=== PATIENT | female | born 1995 | race Caucasian/White ===

== ENCOUNTER 2016-09-08 10:33 | Inpatient (IN) | payer MEDICAID ==
[2016-09-08 11:46] LABS: APPEARANCE,URINE SLIGHTLY-CLOUDY; BILIRUBIN,URINE NEGATIVE (NEGATIVE); GLUCOSE, URINE NEGATIVE (NEGATIVE); KETONES,URINE NEGATIVE (NEGATIVE); LEUKOCYTE ESTERASE,URINE TRACE (NEGATIVE); NITRITE,URINE NEGATIVE (NEGATIVE); PROTEIN,URINE NEGATIVE (NEGATIVE); URINE SPECIFIC GRAVITY 1.019; UROBILINOGEN,URINE NEGATIVE mg/dL (<2.0)
--- NOTE | 2016-09-08 12:00 | L&D Flow Sheet ---
LD Flowsheet Datetime Report Generated by CPN: 09/08/2016 12:00 Datetime: 09/08/2016 11:45 Patient Care Comments: lab called to inform that urine sent down was not enough to do a GC/Chlam culture (Alicia Afsaneh, RN) Datetime: 09/08/2016 11:35 Comments: monitors disconnected for pt to be transported to ultrasound (Alicia Afsaneh, RN) Datetime: 09/08/2016 11:33 Patient Care Comments: pt resting in bed with eyes closed (Alicia Afsaneh, RN) Datetime: 09/08/2016 11:30 Vital Signs NBP Sys/Janiya/Mean (mmHg): 125 (QS system process) : 77 (QS system process) : 94 (QS system process) Pulse: 96 (QS system process) Uterine Activity Monitor Mode: External; Palpation (Alicia Afsaneh, RN) Frequency (min): 3-5 (Alicia Afsaneh, RN) Quality: Mild (Alicia Afsaneh, RN) Duration (sec): 6080 (Alicia Afsaneh, RN) Resting Tone (Palpate): Relaxed (Alicia Afsaneh, RN) Assessment A Monitor Mode: External US (Alicia Afsaneh, RN) FHR Baseline Rate : 140 (Alicia Afsaneh, RN) Variability: Moderate 6-25 bpm (Alicia Afsaneh, RN) Accelerations: 15X15 (Alicia Afsaneh, RN) Decelerations: Early (Alicia Afsaneh, RN) Datetime: 09/08/2016 11:15 Frequency (min): pt is unsure, states it feels like a sharp pain (Alicia Afsaneh, RN) Pain Pain Scale: 3 (Alicia Afsaneh, RN) Pain Presence: Intermittent (Alicia Afsaneh, RN) Pain Type: Sharp (Alicia Afsaneh, RN) Pain Location: Abdomen (Alicia Afsaneh, RN) Pain Relief Measures: Comfort Measures (Alicia Afsaneh, RN) Pain Coping: Talking Through Contractions (Alicia Afsaneh, RN) Vaginal Exam Vaginal Bleeding: None (Alicia Afsaneh, RN) Maternal Assessment Level of Consciousness: Fully Conscious (Alicia Afsaneh, RN) Headache: Denies (Alicia Afsaneh, RN) Breath Sounds, Left: Clear and Equal (Alicia Afsaneh, RN) Breath Sounds, Right: Clear and Equal (Alicia Afsaneh, RN) Nausea/Vomiting: Denies (Alicia Afsaneh, RN) RUQ Epigastric Pain: Denies (Alicia Afsaneh, RN) Datetime: 09/08/2016 11:00 Vital Signs NBP Sys/Janiya/Mean (mmHg): 134 (QS system process) : 82 (QS system process) : 102 (QS system process) Pulse: 109 (QS system process) Datetime: 09/08/2016 10:59 Patient Care Patient Position/Activity: Left Tilt (Alicia Afsaneh, RN)
[2016-09-08 12:08] LABS: URINE BARBITURATES SCREEN NEGATIVE; URINE METHADONE SCREEN NEGATIVE; URINE OPIATES LOW NEGATIVE; URINE PHENCYCLIDINE SCREEN NEGATIVE
[2016-09-08] MEDS ORDERED: RINGERS SOLUTION,LACTATED 300 ML IV ONE (12:36)
[2016-09-08] MEDS ORDERED: RINGERS SOLUTION,LACTATED 1,000 ML IV PRN (12:36)
[2016-09-08 13:36] LABS: ABSOLUTE EOSINOPHILS # (AUTO) 0.2 10^3/uL (0.0-0.6); ABSOLUTE LYMPHOCYTES (AUTO) 2.2 10^3/uL (0.5-4.7); ABSOLUTE MONOCYTES (AUTO) 0.7 10^3/uL (0.1-1.4); ABSOLUTE NEUT (AUTO) 11.6 10^3/uL (1.7-8.2); BASOPHILS % (AUTO) 0.3 % (0-2); EOSINOPHILS % (AUTO) 1.4 % (0-6); HEMATOCRIT 39.4 % (36.0-47.0); HEMOGLOBIN 13.2 g/dL (12.0-15.5); HGB HCT DIFFERENCE 0.2; LYMPHOCYTES % (AUTO) 14.8 % (13-45); MEAN CORPUSCULAR HEMOGLOBIN 29.3 pg (27.0-33.4); MEAN CORPUSCULAR HGB CONC 33.5 g/dL (32.0-36.0); MEAN CORPUSCULAR VOLUME 88 fl (80-97); MONOCYTES % (AUTO) 4.7 % (3-13); RED CELL DISTRIBUTION WIDTH 13.9 % (11.5-14.0); SEGMENTED NEUTROPHILS % (AUTO) 78.8 % (42-78); WHITE BLOOD COUNT 14.7 10^3/uL (4.0-10.5)
--- NOTE | 2016-09-08 14:00 | L&D Flow Sheet ---
LD Flowsheet Datetime Report Generated by CPN: 09/08/2016 14:00 Datetime: 09/08/2016 13:57 NBP Sys/Janiya/Mean (mmHg): 130 (QS system process) : 80 (QS system process) : 100 (QS system process) Pulse: 77 (QS system process) Datetime: 09/08/2016 13:46 Medication Comments: pharmacy called back, asked status of Cervidil. document management technician stated that someone already left to bring it up (Alicia Afsaneh, RN) Datetime: 09/08/2016 13:11 Medication Comments: pharmacy called and informed that pt needs a Cervidil. Due to our Pyxis fridge being down pharmcy stated they will walk it right up (Alicia Afsaneh, RN) Datetime: 09/08/2016 13:00 Patient Care Comments: consents signed (Alicia Afsaneh, RN) Datetime: 09/08/2016 12:39 Communication Comments: K. Aris CNM at bedside (Alicia Afsaneh, RN) Datetime: 09/08/2016 12:30 Communication Comments: Dr. Leon on unit, FHR strip reviewed by CNNick and . Order recieved to admit pt for oligo and IUGR and place cervidil once admitted. PT able to eat regular diet (Alicia Afsaneh, RN) Datetime: 09/08/2016 12:11 Dilatation (cm): 1.0 (Alicia Afsaneh, RN) Effacement (%): 50 (Alicia Afsaneh, RN) Station: -3 (Alicia Afsaneh, RN) Exam by: A. Afsaneh RN (Alicia Afsaneh, RN) Datetime: 09/08/2016 12:09 Patient Care Comments: GBS swab and GC/Chlam swab done and sent (Alicia Shelby RN)
[2016-09-08 14:04] LABS: CHLAM PCR NOT DETECTED (NOT DETECT)
[2016-09-08] MEDS: DINOPROSTONE 10 MG VAGINAL INSERT.SR PV PRN ×2 (14:17→22:00)
--- NOTE | 2016-09-08 16:01 | L&D Flow Sheet ---
LD Flowsheet Datetime Report Generated by CPN: 09/08/2016 16:00 Datetime: 09/08/2016 15:57 NBP Sys/Janiya/Mean (mmHg): 124 (QS system process) : 78 (QS system process) : 94 (QS system process) Pulse: 96 (QS system process) Datetime: 09/08/2016 15:30 Monitor Mode: External (Alicia Afsaneh, RN) Frequency (min): 2-6 (Alicia Afsaneh, RN) Quality: Mild (Alicia Afsaneh, RN) Duration (sec): 60-80 (Alicia Afsaneh, RN) Resting Tone (Palpate): Relaxed (Alicia Afsaneh, RN) Monitor Mode: External US (Alicia Afsaneh, RN) FHR Baseline Rate : 135 (Alicia Afsaneh, RN) Variability: Moderate 6-25 bpm (Alicia Afsaneh, RN) Accelerations: None (Alicia Afsaneh, RN) Decelerations: None (Alicia Afsaneh, RN) Datetime: 09/08/2016 15:27 NBP Sys/Janiya/Mean (mmHg): 120 (QS system process) : 80 (QS system process) : 96 (QS system process) Pulse: 90 (QS system process) Datetime: 09/08/2016 15:08 Pain Scale: 0 (Alicia Afsaneh, RN) Patient Care Comments: warm blankets given to pt (Alicia Afsaneh, RN) Datetime: 09/08/2016 15:00 Monitor Mode: External (Alicia Afsaneh, RN) Frequency (min): none (Alicia Afsaneh, RN) Quality: Mild (Alicia Afsaneh, RN) Resting Tone (Palpate): Relaxed (Alicia Afsaneh, RN) Monitor Mode: External US (Alicia Afsaneh, RN) FHR Baseline Rate : 130 (Alicia Afsaneh, RN) Variability: Moderate 6-25 bpm (Alicia Afsaneh, RN) Accelerations: None (Alicia Afsaneh, RN) Decelerations: None (Alicia Afsaneh, RN) Datetime: 09/08/2016 14:57 NBP Sys/Janiya/Mean (mmHg): 134 (QS system process) : 89 (QS system process) : 107 (QS system process) Pulse: 106 (QS system process) Datetime: 09/08/2016 14:30 Monitor Mode: External (Alicia Afsaneh, RN) Frequency (min): none (Alicia Afsaneh, RN) Quality: Mild (Alicia Afsaneh, RN) Resting Tone (Palpate): Relaxed (Alicia Afsaneh, RN) Monitor Mode: External US (Alicia Afsaneh, RN) FHR Baseline Rate : 135 (Alicia Afsaneh, RN) Variability: Moderate 6-25 bpm (Alicia Afsaneh, RN) Accelerations: None (Alicia Afsaneh, RN) Decelerations: None (Alicia Afsaneh, RN) Datetime: 09/08/2016 14:27 NBP Sys/Janiya/Mean (mmHg): 132 (QS system process) : 81 (QS system process) : 100 (QS system process) Pulse: 92 (QS system process) Datetime: 09/08/2016 14:17 Medication Comments: 10mg Cervidil (Alicia Afsaneh, RN) Datetime: 09/08/2016 14:11 I/O Interventions: Up to BR (Alicia Afsaneh, RN) Datetime: 09/08/2016 14:00 Monitor Mode: External; Palpation (Alicia Afsaneh, RN) Frequency (min): none (Alicia Afsaneh, RN) Quality: Mild (Alicia Afsaneh, RN) Resting Tone (Palpate): Relaxed (Alicia Afsaneh, RN) Monitor Mode: External US (Alicia Afsaneh, RN) FHR Baseline Rate : 130 (Alicia Afsaneh, RN) Variability: Moderate 6-25 bpm (Alicia Afsaneh, RN) Accelerations: 15X15 (Alicia Afsaneh, RN) Decelerations: None (Alicia Afsaneh, RN)
[2016-09-08] MEDS ORDERED: EPHEDRINE SULFATE INJ 50 MG/1 ML AMPULE ONE (17:27)
[2016-09-08] MEDS ORDERED: BUPIVACAINE HCL 0.25 % INJ/PF (2.5 MG/1 ML) 30 ML VIAL ONE (17:27)
[2016-09-08] MEDS ORDERED: PENICILLIN G-K 5 MILLION UNIT VIAL ONE ×2 (17:27→20:30)
[2016-09-08] MEDS ORDERED: FENTANYL/BUPIVACAINE/NS/PF 200 MCG/100 ML RTUINJ EPI ONE (17:27)
--- NOTE | 2016-09-08 18:00 | L&D Flow Sheet ---
LD Flowsheet Datetime Report Generated by CPN: 09/08/2016 18:00 Datetime: 09/08/2016 17:47 Temperature (F): 98.2 (Alicia Afsaneh, RN) Temperature (C): 36.8 (QS system process) Datetime: 09/08/2016 17:45 Medication Comments: new bag of LR hung (Alicia Afsaneh, RN) Datetime: 09/08/2016 17:32 Medication Comments: 5 million units PCN G (Alicia Afsaneh, RN) Datetime: 09/08/2016 17:30 Monitor Mode: External (Alicia Afsaneh, RN) Quality: Mild/Moderate (Alicia Afsaneh, RN) Resting Tone (Palpate): Relaxed (Alicia Afsaneh, RN) Contraction Comments: unable to determine due to pt movement (Alicia Afsaneh, RN) Monitor Mode: External US (Alicia Afsaneh, RN) FHR Baseline Rate : 125 (Alicia Afsaneh, RN) Variability: Moderate 6-25 bpm (Alicia Afsaneh, RN) Accelerations: 15X15 (Alicia Afsaneh, RN) Decelerations: None (Alicia Afsaneh, RN) Datetime: 09/08/2016 17:27 NBP Sys/Janiya/Mean (mmHg): 121 (QS system process) : 83 (QS system process) : 98 (QS system process) Pulse: 90 (QS system process) Datetime: 09/08/2016 17:19 Dilatation (cm): 3.5 (Alicia Shelby RN) Exam by: Aline Hurst CNM (Alicia Shelby RN) Vaginal Exam Comments: cervidil pulled by CNNick (Alicia Shelby RN) Procedure Verify: Correct Patient Identity (Alicia Sehlby RN) Anesthesia Plans: Epidural (Alicia Shelby RN) Anesthesia Comments: LR bolus started (Alicia Shelby RN) Datetime: 09/08/2016 17:17 Communication Comments: Aline Hurst CNM at bedside (Alicia Shelby RN) Datetime: 09/08/2016 17:06 Communication Comments: Aline silvestre CNm on unit, informed of pt SVE and request for pain medication. Order recieved to give 2 tylenol #3 PO now (Alicia Shelby, RN) Datetime: 09/08/2016 17:04 Dilatation (cm): 1.5 (Alicia Shelby, BUD) Effacement (%): 70 (Alicia Shelby, BUD) Station: -1 (Alicia Shelby, BUD) Exam by: Alma Shelby RN (Alicia Shelby RN) Vaginal Exam Comments: pt stating she is feeling like baby is coming (Alicia Shelby, BUD) Datetime: 09/08/2016 17:00 Monitor Mode: External; Palpation (Alicia Afsaneh, RN) Frequency (min): irreg (Alicia Afsaneh, RN) Quality: Mild/Moderate (Alicia Afsaneh, RN) Resting Tone (Palpate): Relaxed (Alicia Afsaneh, RN) Comments: unable to determine due to pt position (Alicia Afsaneh, RN) Datetime: 09/08/2016 16:57 NBP Sys/Janiya/Mean (mmHg): 142 (QS system process) : 93 (QS system process) : 112 (QS system process) Pulse: 113 (QS system process) Datetime: 09/08/2016 16:44 Patient Care Comments: pt sitting up in bed eating dinner (Alicia Afsaneh, RN) Datetime: 09/08/2016 16:36 I/O Interventions: Up to BR (Alicia Afsaneh, RN) Datetime: 09/08/2016 16:30 Monitor Mode: External (Alicia Afsaneh, RN) Frequency (min): 2-5 (Alicia Afsaneh, RN) Quality: Mild (Alicia Afsaneh, RN) Duration (sec): 60-80 (Alicia Afsaneh, RN) Resting Tone (Palpate): Relaxed (Alicia Afsaneh, RN) Monitor Mode: External US (Alicia Afsaneh, RN) FHR Baseline Rate : 125 (Alicia Afsaneh, RN) Variability: Moderate 6-25 bpm (Alicia Afsaneh, RN) Accelerations: None (Alicia Afsaneh, RN) Decelerations: None (Alicia Afsaneh, RN) Datetime: 09/08/2016 16:27 NBP Sys/Janiya/Mean (mmHg): 119 (QS system process) : 77 (QS system process) : 93 (QS system process) Pulse: 89 (QS system process) Datetime: 09/08/2016 16:00 Monitor Mode: External (Alicia Afsaneh, RN) Frequency (min): 1-5 (Alicia Afsaneh, RN) Quality: Mild (Alicia Afsaneh, RN) Duration (sec): 60-80 (Alicia Afsaneh, RN) Resting Tone (Palpate): Relaxed (Alicia Afsaneh, RN) Monitor Mode: External US (Alicia Afsaneh, RN) FHR Baseline Rate : 135 (Alicia Afsaneh, RN) Variability: Moderate 6-25 bpm (Alicia Afsaneh, RN) Accelerations: None (Alicia Afsaneh, RN) Decelerations: None (Alicia Afsaneh, RN)
--- NOTE | 2016-09-08 20:01 | L&D Flow Sheet ---
LD Flowsheet Datetime Report Generated by CPN: 09/08/2016 20:00 Datetime: 09/08/2016 19:53 NBP Sys/Janiya/Mean (mmHg): 124 (QS system process) : 73 (QS system process) : 94 (QS system process) Pulse: 103 (QS system process) LaborFlag: Antepartum (QS system process) Datetime: 09/08/2016 19:49 I/O Interventions: Popsicle (Sheryl Ledgerwood, RN) Datetime: 09/08/2016 19:38 NBP Sys/Janiya/Mean (mmHg): 125 (QS system process) : 75 (QS system process) : 94 (QS system process) Pulse: 102 (QS system process) LaborFlag: Antepartum (QS system process) Datetime: 09/08/2016 19:37 Dilatation (cm): 5.0 (Sheryl Ledgerwood, RN) Effacement (%): 80 (Sheryl Ledgerwood, RN) Station: -1 (Sheryl Ledgerwood, RN) Exam by: O Margo RN (Sheryl Ledgerwood, RN) Datetime: 09/08/2016 19:30 Monitor Mode: External; Palpation (Sheryl Ledgerwood, RN) Frequency (min): 1.5-4.5 (Sheryl Ledgerwood, RN) Quality: Moderate (Sheryl Ledgerwood, RN) Duration (sec): 50-70 (Sheryl Ledgerwood, RN) Duration Criteria: Less than Two 120 Second Contractions (Sheryl Ledgerwood, RN) Pattern: Normal: <= 5 Contractions in 10 Minutes (Sheryl Ledgerwood, RN) Resting Tone (Palpate): Relaxed (Sheryl Ledgerwood, RN) Monitor Mode: External US (Sheryl Ledgerwood, RN) FHR Baseline Rate : 135 (Sheryl Ledgerwood, RN) FHR Baseline Changes: No Baseline Change (Sheryl Ledgerwood, RN) Variability: Moderate 6-25 bpm (Sheryl Ledgerwood, RN) Accelerations: None (Sheryl Ledgerwood, RN) Decelerations: Early; Variable (Sheryl Ledgerwood, RN) Datetime: 09/08/2016 19:25 Pain Scale: 0 (Sheryl Ledgerwood, RN) Level of Consciousness: Fully Conscious (Sheryl Ledgerwood, RN) DTR's/Clonus: DTRs 2+; No Clonus (Sheryl Ledgerwood, RN) Headache: Denies (Sheryl Ledgerwood, RN) Breath Sounds, Left: Clear and Equal (Sheryl Ledgerwood, RN) Breath Sounds, Right: Clear and Equal (Sheryl Ledgerwood, RN) Nausea/Vomiting: Denies (Sheryl Ledgerwood, RN) RUQ Epigastric Pain: Denies (Sheryl Aragon RN) Instructional Method: Demo; Verbal; Patient Instructed (Sheryl Aragon RN) Plan of Care: Plan of Care Discussed; Vaginal Delivery; Labor (Sheryl Aragon RN) LaborFlag: Antepartum (QS system process) Datetime: 09/08/2016 19:24 NBP Sys/Janiya/Mean (mmHg): 130 (QS system process) : 77 (QS system process) : 98 (QS system process) Pulse: 86 (QS system process) Respirations: 14 (Sheryl Aragon RN) LaborFlag: Antepartum (QS system process) Datetime: 09/08/2016 19:21 Communication Comments: Report received from Delia Shelby RN at bedside. (Sheryl Aragon RN) Datetime: 09/08/2016 19:09 NBP Sys/Janiya/Mean (mmHg): 133 (QS system process) : 82 (QS system process) : 99 (QS system process) Pulse: 100 (QS system process) LaborFlag: Antepartum (QS system process) Datetime: 09/08/2016 18:53 NBP Sys/Janiya/Mean (mmHg): 117 (QS system process) : 73 (QS system process) : 91 (QS system process) Pulse: 120 (QS system process) LaborFlag: Antepartum (QS system process) Datetime: 09/08/2016 18:48 NBP Sys/Janiya/Mean (mmHg): 126 (QS system process) : 59 (QS system process) : 85 (QS system process) Pulse: 100 (QS system process) LaborFlag: Antepartum (QS system process) Datetime: 09/08/2016 18:37 NBP Sys/Janiya/Mean (mmHg): 124 (QS system process) : 88 (QS system process) : 99 (QS system process) Pulse: 105 (QS system process) LaborFlag: Antepartum (QS system process) Datetime: 09/08/2016 18:34 Temperature (F): 98.3 (Alicia Shelby RN) Temperature (C): 36.8 (QS system process) LaborFlag: Antepartum (QS system process) Datetime: 09/08/2016 18:30 Monitor Mode: External (Alicia Afsaneh, RN) Frequency (min): irreg (Alicia Afsaneh, RN) Quality: Mild/Moderate (Alicia Afsaneh, RN) Resting Tone (Palpate): Relaxed (Alicia Afsaneh, RN) Monitor Mode: External US (Alicia Afsaneh, RN) FHR Baseline Rate : 135 (Alicia Afsaneh, RN) Variability: Moderate 6-25 bpm (Alicia Afsaneh, RN) Accelerations: 15X15 (Alicia Afsaneh, RN) Decelerations: None (Alicia Afsaneh, RN) Datetime: 09/08/2016 18:26 NBP Sys/Janiya/Mean (mmHg): 126 (QS system process) : 75 (QS system process) : 93 (QS system process) Pulse: 110 (QS system process) Patient Position/Activity: Left Tilt (Alicia Afsaneh, RN) LaborFlag: Antepartum (QS system process) Datetime: 09/08/2016 18:25 NBP Sys/Janiya/Mean (mmHg): 127 (QS system process) : 75 (QS system process) : 96 (QS system process) Pulse: 108 (QS system process) I/O Interventions: Jose Cath Inserted (Alicia Shelby RN) LaborFlag: Antepartum (QS system process) Datetime: 09/08/2016 18:24 NBP Sys/Janiya/Mean (mmHg): 125 (QS system process) : 80 (QS system process) : 95 (QS system process) Pulse: 117 (QS system process) LaborFlag: Antepartum (QS system process) Datetime: 09/08/2016 18:23 Pulse: 109 (QS system process) SpO2 (%): 89 (QS system process) LaborFlag: Antepartum (QS system process) Datetime: 09/08/2016 18:22 NBP Sys/Janiya/Mean (mmHg): 132 (QS system process) : 75 (QS system process) : 97 (QS system process) Pulse: 105 (QS system process) Pulse: 101 (QS system process) SpO2 (%): 96 (QS system process) LaborFlag: Antepartum (QS system process) Datetime: 09/08/2016 18:21 NBP Sys/Janiya/Mean (mmHg): 138 (QS system process) : 83 (QS system process) : 104 (QS system process) Pulse: 102 (QS system process) LaborFlag: Antepartum (QS system process) Datetime: 09/08/2016 18:20 NBP Sys/Janiya/Mean (mmHg): 135 (QS system process) : 93 (QS system process) : 107 (QS system process) Pulse: 110 (QS system process) Epidural Procedure: Test Dose (Alicia Afsaneh, RN) LaborFlag: Antepartum (QS system process) Datetime: 09/08/2016 18:17 Pulse: 111 (QS system process) SpO2 (%): 100 (QS system process) LaborFlag: Antepartum (QS system process) Datetime: 09/08/2016 18:12 Pulse: 105 (QS system process) SpO2 (%): 100 (QS system process) LaborFlag: Antepartum (QS system process) Datetime: 09/08/2016 18:09 Anesthesia Plans: Epidural (Alicia Shelby, RN) Epidural Positioning: Sitting (Alicia Shelby, RN) Anesthesia Comments: Dr. Bradford at bedside (Alicia Shelby, RN) Datetime: 09/08/2016 18:00 Monitor Mode: External (Alicia Shelby, RN) Frequency (min): irreg (Alicia Shelby, RN) Quality: Mild/Moderate (Alicia Afsaneh, RN) Resting Tone (Palpate): Relaxed (Alicia Shelby, RN) Monitor Mode: External US (Alicia Shelby, RN) FHR Baseline Rate : 135 (Alicia Afsaneh, RN) Variability: Moderate 6-25 bpm (Alicia Afsaneh, RN) Accelerations: 15X15 (Alicia Afsaneh, RN) Decelerations: None (Alicianicholas Shelby, RN)
--- NOTE | 2016-09-08 22:01 | L&D Flow Sheet ---
LD Flowsheet Datetime Report Generated by CPN: 09/08/2016 22:00 Datetime: 09/08/2016 21:55 NBP Sys/Janiya/Mean (mmHg): 112 (QS system process) : 70 (QS system process) : 86 (QS system process) Pulse: 102 (QS system process) LaborFlag: Antepartum (QS system process) Datetime: 09/08/2016 21:39 NBP Sys/Janiya/Mean (mmHg): 126 (QS system process) : 75 (QS system process) : 93 (QS system process) Pulse: 91 (QS system process) LaborFlag: Antepartum (QS system process) Datetime: 09/08/2016 21:30 Monitor Mode: External (Sheryl Ledgerwood, RN) Frequency (min): 1.5-4.5 (Sheryl Ledgerwood, RN) Quality: Moderate (Sheryl Ledgerwood, RN) Duration (sec): 70-90 (Sheryl Ledgerwood, RN) Duration Criteria: Less than Two 120 Second Contractions (Sheryl Ledgerwood, RN) Pattern: Normal: <= 5 Contractions in 10 Minutes (Sheryl Ledgerwood, RN) Resting Tone (Palpate): Relaxed (Sheryl Ledgerwood, RN) Monitor Mode: External US (Sheryl Ledgerwood, RN) FHR Baseline Rate : 135 (Sheryl Ledgerwood, RN) FHR Baseline Changes: No Baseline Change (Sheryl Ledgerwood, RN) Variability: Moderate 6-25 bpm (Sheryl Ledgerwood, RN) Accelerations: None (Sheryl Ledgerwood, RN) Decelerations: Early (Sheryl Ledgerwood, RN) Datetime: 09/08/2016 21:24 NBP Sys/Janiya/Mean (mmHg): 122 (QS system process) : 65 (QS system process) : 87 (QS system process) Pulse: 98 (QS system process) LaborFlag: Antepartum (QS system process) Datetime: 09/08/2016 21:09 NBP Sys/Janiya/Mean (mmHg): 97 (QS system process) : 67 (QS system process) : 76 (QS system process) Pulse: 106 (QS system process) LaborFlag: Antepartum (QS system process) Datetime: 09/08/2016 21:00 Monitor Mode: External; Palpation (Sheryl Aragon RN) Frequency (min): 2-4.5 (Sheryl Aragon, RN) Quality: Moderate (Sheryl Aragon, RN) Duration (sec): 60-90 (Sheryl Aragon, RN) Duration Criteria: Less than Two 120 Second Contractions (Sheryl Aragon, RN) Pattern: Normal: <= 5 Contractions in 10 Minutes (Sheryl Aragon, RN) Resting Tone (Palpate): Relaxed (Sheryl Ledgerwood, RN) Monitor Mode: External US (Sheryl Ledgerwood, RN) FHR Baseline Rate : 135 (Sheryl Ledgerwood, RN) FHR Baseline Changes: No Baseline Change (Sheryl Ledgerwood, RN) Variability: Moderate 6-25 bpm (Sheryl Ledgerwood, RN) Accelerations: None (Sheryl Ledgerwood, RN) Decelerations: Early (Sheryl Ledgerwood, RN) Datetime: 09/08/2016 20:54 NBP Sys/Janiya/Mean (mmHg): 120 (QS system process) : 65 (QS system process) : 85 (QS system process) Pulse: 109 (QS system process) LaborFlag: Antepartum (QS system process) Datetime: 09/08/2016 20:35 Antibiotics: Penicillin IV (Units) @ [id number] (Sheryl Ledgerwood, RN) Datetime: 09/08/2016 20:30 Monitor Mode: External; Palpation (Sheryl Ledgerwood, RN) Frequency (min): 1.5-3.5 (Sheryl Ledgerwood, RN) Quality: Moderate (Sheryl Ledgerwood, RN) Duration (sec): 60-80 (Sheryl Ledgerwood, RN) Duration Criteria: Less than Two 120 Second Contractions (Sheryl Ledgerwood, RN) Pattern: Normal: <= 5 Contractions in 10 Minutes (Sheryl Ledgerwood, RN) Resting Tone (Palpate): Relaxed (Sheryl Ledgerwood, RN) Monitor Mode: External US (Sheryl Ledgerwood, RN) FHR Baseline Rate : 135 (Sheryl Ledgerwood, RN) FHR Baseline Changes: No Baseline Change (Sheryl Ledgerwood, RN) Variability: Moderate 6-25 bpm (Sheryl Ledgerwood, RN) Accelerations: None (Sheryl Ledgerwood, RN) Decelerations: Early (Sheryl Ledgerwood, RN) Datetime: 09/08/2016 20:24 NBP Sys/Janiya/Mean (mmHg): 125 (QS system process) : 73 (QS system process) : 93 (QS system process) Pulse: 104 (QS system process) LaborFlag: Antepartum (QS system process) Datetime: 09/08/2016 20:11 Membrane Status: Ruptured (Sheryl Timmyorrum ) Membranes Rupture Method: Artificial (Sheryl BUD Aragon) Amniotic Fluid Color: Light Meconium ([facility] Amniotic Fluid Amount: Small ([facility] [place] [facility] Membrane Comments: Amniotic fluid bloodyand light meconium ([facility] ) Datetime: 09/08/2016 20:10 Dilatation (cm): 5.0 ([facility], ) Effacement (%): 80 ([facility], ) Station: -1 ([facility]) Exam by: Corazon Aris SCHMITT ([facility] ) Datetime: 09/08/2016 20:00 Monitor Mode: External; Palpation (Sheryl Ledgerwood, RN) Frequency (min): 2.5-6.5 (Sheryl Ledgerwood, RN) Quality: Moderate (Sheryl Ledgerwood, RN) Duration (sec): 50-80 (Sheryl Ledgerwood, RN) Duration Criteria: Less than Two 120 Second Contractions (Sheryl Ledgerwood, RN) Pattern: Normal: <= 5 Contractions in 10 Minutes (Sheryl Ledgerwood, RN) Resting Tone (Palpate): Relaxed (Sheryl Ledgerwood, RN) Monitor Mode: External US (Sheryl Ledgerwood, RN) FHR Baseline Rate : 140 (Sheryl Ledgerwood, RN) FHR Baseline Changes: No Baseline Change (Sheryl Ledgerwood, RN) Variability: Moderate 6-25 bpm (Sheryl Ledgerwood, RN) Accelerations: None (Sheryl Ledgerwood, RN) Decelerations: Early (Sheryl Ledgerwood, RN)
[2016-09-08] MEDS ORDERED: MISOPROSTOL 0.2 MG TABLET ONE (22:27)
[2016-09-08] MEDS ORDERED: LIDOCAINE 1% INJ-PF (10 MG/ML) 30 ML SDV ONE (22:27)
[2016-09-08] MEDS ORDERED: OXYTOCIN/NORMAL SALINE 20 UNIT/1,000 ML RTUINJ ONE (22:27)
[2016-09-08] MEDS ORDERED: MAGNESIUM HYDROXIDE SUSP 30 ML UDCUP PO PRN (22:56)
[2016-09-08] MEDS ORDERED: NA PHOS,M-B/NA PHOS,DI-BA (ADULT) 133 ML ENEMA PR PRN (22:56)
[2016-09-08] MEDS ORDERED: ZOLPIDEM TARTRATE 5 MG TABLET PO PRN (22:56)
[2016-09-08] MEDS ORDERED: ACETAMINOPHEN 650 MG SUPP.RECT PR PRN (22:56)
[2016-09-08] MEDS ORDERED: DIPH/PERTUSS(ACELL)/TETANUS VAC/PF 0.5 ML SYR (>=10YO) IM PRN (22:56)
[2016-09-08] MEDS ORDERED: PSEUDOEPHEDRINE HCL 30 MG TABLET PO PRN (22:56)
[2016-09-08] MEDS ORDERED: OXYTOCIN/NORMAL SALINE 1,000 ML IV PRN (22:56)
[2016-09-08] MEDS ORDERED: PROMETHAZINE HCL INJ 25 MG/1 ML VIAL IV PRN (22:56)
[2016-09-08] MEDS ORDERED: ACETAMINOPHEN WITH CODEINE #3 TABLET PO PRN ×2 (22:56)
[2016-09-08] MEDS ORDERED: PROMETHAZINE HCL 25 MG TABLET PO PRN (22:56)
[2016-09-08] MEDS ORDERED: DIBUCAINE 1% OINTMENT 28 GM TP PRN (22:56)
[2016-09-08] MEDS ORDERED: PROMETHAZINE HCL 25 MG SUPP.RECT PR PRN (22:56)
[2016-09-08] MEDS ORDERED: DIPHENHYDRAMINE HCL 25 MG CAPSULE PO PRN (22:56)
[2016-09-08] MEDS ORDERED: MEASLES,MUMPS&RUBELLA VACC/PF 0.5 ML VIAL SUBCUT PRN (22:56)
[2016-09-08] MEDS ORDERED: BENZOCAINE/MENTHOL AEROSOL SPRAY 56 ML TOP PRN (22:56)
[2016-09-08] MEDS ORDERED: GLYCERIN/WITCH HAZEL LEAF 1 EACH MED..PAD TP PRN (22:56)
[2016-09-08] MEDS ORDERED: NICOTINE 21 MG/24 HR PATCH.TD24 ONE (23:02)
[2016-09-08] MEDS ORDERED: NICOTINE 21 MG/24 HR PATCH.TD24 TD SCH (23:30)
[2016-09-08] MEDS ORDERED: NICOTINE 21 MG/24 HR PATCH.TD24 TD ONE (23:45)
[2016-09-08] MEDS ORDERED: ACETAMINOPHEN WITH CODEINE #3 TABLET ONE (23:51)
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
--- NOTE | 2016-09-09 01:06 | Delivery Summary ---
Del Sum A-C Datetime Report Generated by CPN: 09/09/2016 01:06 ADMISSION DATA Chief Complaint: Uterine Contractions Chief Complaint Comments: NO PNC since MAR, only 2 visits at [facility] and one visit at [facility] here for c/o contractions but not in labor Indication for Induction: IUGR; Oligohydramnios Indication for Induction Comment: Sono today compared to 20 wk sono here shows Oligohydramnios and IUGR Admission Impression: Term, Intrauterine ; No Active Labor Admission Impression Comments: 39 +weeks HX uncomplicated and delivery at term Admit Provider Comments: Cervidil Induction DELIVERY PERSONNEL Delivery Doctor:: Sanjana Leon MD Labor and Delivery Nurse:: BUD Quan Tech/FRUIT CUTTER: Ace LozoyaLIZ MATERNAL INFORMATION Delivery Anesthesia: Epidural Medications After Delivery: Pitocin Drip 20 Units/1000ml NSS Estimated Blood Loss (ml): 250 Maternal Complications: Other Other Maternal Complications: IUGR Oligo Provider Comments: Pt progressed to complete and pushing. Head delivered OA. Shoulders and body delivered easily. HIGH SCHOOL ART TEACHER/OP bulb suctioned. Cord clamped and cut. Placenta spont and intact. Female with apgars 8 and 9. Mom and baby doing well. LABOR SUMMARY EDC: 09/13/2016 00:00 No. Babies in Womb: 1 Attempted: No Labor Anesthesia: Epidural LABOR INFORMATION Reason for Induction: Intrauterine Growth Retardation; Oligohydramnios Onset of Labor: 09/08/2016 17:19 Complete Dilatation: 09/08/2016 22:23 Cervical Ripening Agents: Cervidil Oxytocin: N/A Group B Beta Strep: unknown Antibiotics # of Doses: 2 Antibiotics Time of Last Dose: 2034 Name of Antibiotic Given: PCN Steroids Given: None Reason Steroids Not Administered: Not Applicable MEMBRANES Membranes Rupture Method: Artificial Rupture of Membranes: 09/08/2016 20:11 Length of Rupture (hr): 2.38 Amniotic Fluid Color: Light Meconium Amniotic Fluid Amount: Small Amniotic Fluid Odor: Normal STAGES OF LABOR Stage 1 hr: 5 Stage 1 min: 4 Stage 2 hr: 0 Stage 2 min: 11 Stage 3 hr: 0 Stage 3 min: 4 Total Time in Labor hr: 5 Total Time in Labor min: 19 VAGINAL DELIVERY Episiotomy: None Laceration Type: None Sponge Count Correct: N/A BABY A INFORMATION Infant Delivery Date/Time: 09/08/2016 22:34 Method of Delivery: Vaginal Born in Route : No : N/A Forceps: N/A Vacuum Extraction: N/A Shoulder Dystocia : No PRESENTATION/POSITION BABY A Presentation: Cephalic Cephalic Presentation: Vertex Vertex Position: Right Occipital Anterior Breech Presentation: N/A PLACENTA INFORMATION BABY A Placenta Delivery Time : 09/08/2016 22:38 Placenta Method of Delivery: Spontaneous Placenta Status: Delivered SCORES BABY A Heart Rate 1 min: >100 bpm Resp Effort 1 min: Good Cry Reflex Irritability 1 min: Cough or Sneeze or Pulls Away Muscle Tone 1 min: Active Motion Color 1 min: Blue/Pale Resuscitation Effort 1 min: Tactile Stimulation SCORE 1 MIN: 8 Heart Rate 5 min: >100 bpm Resp Effort 5 min: Good Cry Reflex Irritability 5 min: Cough or Sneeze or Pulls Away Muscle Tone 5 min: Active Motion Color 5 min: Body [place], Extremities Blue Resuscitation Effort 5 min: Tactile Stimulation SCORE 5 MIN: 9 INFORMATION BABY A Gestational Age at Delivery: 39.2 Gestational Status: Full Term- 39- 40.6 Weeks Infant Outcome : Liveborn Condition : Stable Infant Sex: Female IDENTIFICATION BABY A Verification Date/Time: 09/08/2016 23:26 ID Band Number: [id number] Mother's Name Verified: Yes Infant RN Verifying Infant: R Soy, RNC Additional Verifying Personnel: [facility], RN WEIGHT/LENGTH BABY A Infant Birthweight (gm): 2610 Infant Weight (lb): 5 Infant Weight (oz): 12 Length (in): 19.50 Length (cm): 49.53 CORD INFORMATION BABY A No. Cord Vessels: 3 Nuchal Cord : N/A Cord Blood Taken: Yes-For Eval (Mom's Blood Type - or O+) Infant Suction: None ASSESSMENT BABY A Skin to Skin: Pt was advised to do skin to skin,pt refused to do skin to skin. BABY B INFORMATION : N/A SIGNATURES Signature: with User ID: [email or web address] : I was personally available for consultation and serving as supervising physician for the MLP.
[2016-09-09] MEDS ORDERED: INFLUENZA ADLT QUAD (36MOS+) 2016-17 VAC 0.5 ML SYR IM PRN (06:03)
--- NOTE | 2016-09-09 07:00 | L&D Flow Sheet ---
LD Flowsheet Datetime Report Generated by CPN: 09/09/2016 07:00 Datetime: 09/09/2016 00:40 Pain Scale: 0 (Sheryl Ledgerwood, RN) Datetime: 09/09/2016 00:24 NBP Sys/Janiya/Mean (mmHg): 125 (QS system process) : 74 (QS system process) : 92 (QS system process) Pulse: 112 (QS system process) Datetime: 09/09/2016 00:09 NBP Sys/Janiya/Mean (mmHg): 123 (QS system process) : 67 (QS system process) : 91 (QS system process) Pulse: 102 (QS system process) Datetime: 09/08/2016 23:57 NBP Sys/Janiya/Mean (mmHg): 128 (QS system process) : 70 (QS system process) : 93 (QS system process) Pulse: 94 (QS system process) Respirations: 14 ([facility], RN) Datetime: 09/08/2016 23:52 Pain Scale: 1 (Sheryl Ledgerwood, ) Pain Location: Perineum (Sheryl Aragon, ) Datetime: 09/08/2016 23:09 Medication Comments: Nicotine patch 21 mg given/left shoulder. (Sheryl Aragon, ) Datetime: 09/08/2016 22:40 Stage of : Recovery (Sheryl Timmybailey, ) Temperature (F): 97.9 (Sheryl Timmybailey, ) Temperature (C): 36.6 (QS system process) Temperature Route: Oral (Sheryl Timmybailey, ) Pain Scale: 0 (Sheryl Timmybailey, ) Datetime: 09/08/2016 22:39 NBP Sys/Janiya/Mean (mmHg): 137 (QS system process) : 81 (QS system process) : 102 (QS system process) Pulse: 97 (QS system process) LaborFlag: Antepartum (QS system process) Datetime: 09/08/2016 22:34 Stage 2 Comments: of vital baby. (Sheryl Aragon, BUD) Datetime: 09/08/2016 22:33 Pushing Position: Pushing with Contractions (Sheryl Aragon RN) Pushing Progress: Presenting Part Visible; Pushing Effectively with Contractions (Sheryl Aragon RN) Stage 2 Comments: RN and provider at bedside continuously assessing FHRs while pt. pushing with contractions. (Sheryl Aragon RN) Datetime: 09/08/2016 22:32 Pushing Position: Pushing with Contractions (Sheryl Ledgerwood, RN) Pushing Progress: Pushing Effectively with Contractions (Sheryl Ledgerwood, RN) Datetime: 09/08/2016 22:30 Monitor Mode: External; Palpation (Sheryl Ledgerwood, RN) Frequency (min): 1.5-3.5 (Sheryl Ledgerwood, RN) Quality: Moderate to Strong (Sheryl Ledgerwood, RN) Duration (sec): 50-70 (Sheryl Ledgerwood, RN) Duration Criteria: Less than Two 120 Second Contractions (Sheryl Ledgerwood, RN) Pattern: Normal: <= 5 Contractions in 10 Minutes (Sheryl Ledgerwood, RN) Resting Tone (Palpate): Relaxed (Sehryl Ledgerwood, RN) Monitor Mode: External US (Sheryl Ledgerwood, RN) FHR Baseline Rate : 135 (Sheryl Ledgerwood, RN) FHR Baseline Changes: No Baseline Change (Sheryl Ledgerwood, RN) Variability: Moderate 6-25 bpm (Sheryl Ledgerwood, RN) Accelerations: None (Sheryl Ledgerwood, RN) Decelerations: Late (Sheryl Ledgerwood, RN) Datetime: 09/08/2016 22:29 Pushing: Coached on Pushing (Sheryl Ledgerwood, RN) Datetime: 09/08/2016 22:28 Communication: Provider at Bedside (Sheryl Gladysgerwood, RN) Communication Comments: Dr Odessailsen at bedside (Sheryl Gladysgerwood, RN) Datetime: 09/08/2016 22:24 NBP Sys/Janiya/Mean (mmHg): 107 (QS system process) : 60 (QS system process) : 77 (QS system process) Pulse: 104 (QS system process) LaborFlag: Antepartum (QS system process) Datetime: 09/08/2016 22:23 Dilatation (cm): 10.0 (Sheryl Ledgerwood, RN) Effacement (%): 100 (Sheryl Ledgerwood, RN) Station: 2 (Sheryl Ledgerwood, RN) Exam by: O Ledgerwood RN (Sheryl Ledgerwood, RN) Datetime: 09/08/2016 22:11 I/O Interventions: Popsicle (Sheryl Ledgerwood, RN) Datetime: 09/08/2016 22:10 NBP Sys/Janiya/Mean (mmHg): 122 (QS system process) : 71 (QS system process) : 90 (QS system process) Pulse: 105 (QS system process) LaborFlag: Antepartum (QS system process) Datetime: 09/08/2016 22:00 Monitor Mode: External (Sheryl Ledgerwood, RN) Frequency (min): 2.5-5.5 (Sheryl Ledgerwood, RN) Quality: Moderate (Sheryl Ledgerwood, RN) Duration (sec): 60-80 (Sheryl Ledgerwood, RN) Duration Criteria: Less than Two 120 Second Contractions (Sheryl Ledgerwood, RN) Pattern: Normal: <= 5 Contractions in 10 Minutes (Sheryl Ledgerwood, RN) Resting Tone (Palpate): Relaxed (Sheryl Ledgerwood, RN) Monitor Mode: External US (Sheryl Ledgerwood, RN) FHR Baseline Rate : 135 (Sheryl Ledgerwood, RN) FHR Baseline Changes: No Baseline Change (Sheryl Ledgerwood, RN) Variability: Moderate 6-25 bpm (Sheryl Ledgerwood, RN) Accelerations: 10X10 (Sheryl Ledgerwood, RN) Decelerations: Early (Sheryl Ledgerwood, RN) Datetime: 09/08/2016 21:55 NBP Sys/Janiya/Mean (mmHg): 112 (QS system process) : 70 (QS system process) : 86 (QS system process) Pulse: 102 (QS system process) LaborFlag: Antepartum (QS system process) Datetime: 09/08/2016 21:39 NBP Sys/Janiya/Mean (mmHg): 126 (QS system process) : 75 (QS system process) : 93 (QS system process) Pulse: 91 (QS system process) LaborFlag: Antepartum (QS system process) Datetime: 09/08/2016 21:30 Monitor Mode: External (Sheryl Grahamgerwood, RN) Frequency (min): 1.5-4.5 (Sheryl Aragon, RN) Quality: Moderate (Sheryl Aragon, RN) Duration (sec): 70-90 (Sheryljose miguel Aragon, RN) Duration Criteria: Less than Two 120 Second Contractions (Sheryl Ledgerwood, RN) Pattern: Normal: <= 5 Contractions in 10 Minutes (Sheryl Ledgerwood, RN) Resting Tone (Palpate): Relaxed (Sheryl Ledgerwood, RN) Monitor Mode: External US (Sheryl Ledgerwood, RN) FHR Baseline Rate : 135 (Sheryl Ledgerwood, RN) FHR Baseline Changes: No Baseline Change (Sheryl Ledgerwood, RN) Variability: Moderate 6-25 bpm (Sheryl Ledgerwood, RN) Accelerations: None (Sheryl Ledgerwood, RN) Decelerations: Early (Sheryl Ledgerwood, RN) Datetime: 09/08/2016 21:24 NBP Sys/Janiya/Mean (mmHg): 122 (QS system process) : 65 (QS system process) : 87 (QS system process) Pulse: 98 (QS system process) LaborFlag: Antepartum (QS system process) Datetime: 09/08/2016 21:09 NBP Sys/Janiya/Mean (mmHg): 97 (QS system process) : 67 (QS system process) : 76 (QS system process) Pulse: 106 (QS system process) LaborFlag: Antepartum (QS system process) Datetime: 09/08/2016 21:00 Monitor Mode: External; Palpation (Sheryl Ledgerwood, RN) Frequency (min): 2-4.5 (Sheryl Ledgerwood, RN) Quality: Moderate (Sheryl Ledgerwood, RN) Duration (sec): 60-90 (Sheryl Ledgerwood, RN) Duration Criteria: Less than Two 120 Second Contractions (Sheryl Ledgerwood, RN) Pattern: Normal: <= 5 Contractions in 10 Minutes (Sheryl Ledgerwood, RN) Resting Tone (Palpate): Relaxed (Sheryl Ledgerwood, RN) Monitor Mode: External US (Sheryl Ledgerwood, RN) FHR Baseline Rate : 135 (Sheryl Ledgerwood, RN) FHR Baseline Changes: No Baseline Change (Sheryl Ledgerwood, RN) Variability: Moderate 6-25 bpm (Sheryl Ledgerwood, RN) Accelerations: None (Sheryl Ledgerwood, RN) Decelerations: Early (Sheryl Ledgerwood, RN) Datetime: 09/08/2016 20:54 NBP Sys/Janiya/Mean (mmHg): 120 (QS system process) : 65 (QS system process) : 85 (QS system process) Pulse: 109 (QS system process) LaborFlag: Antepartum (QS system process) Datetime: 09/08/2016 20:35 Antibiotics: Penicillin IV (Units) @ [id number] (Sheryl Aragon, RN) Datetime: 09/08/2016 20:30 Monitor Mode: External; Palpation (Sheryl Aragon, RN) Frequency (min): 1.5-3.5 (Sheryl Aragon, RN) Quality: Moderate (Sheryl Aragon, RN) Duration (sec): 60-80 (Sheryl Aragon, RN) Duration Criteria: Less than Two 120 Second Contractions (Sheryl Aragon, RN) Pattern: Normal: <= 5 Contractions in 10 Minutes (Sheryl Aragon, RN) Resting Tone (Palpate): Relaxed (Sheryl Aragon, RN) Monitor Mode: External US (Sheryl Aragon, RN) FHR Baseline Rate : 135 (Sheryl Ledgerwood, RN) FHR Baseline Changes: No Baseline Change (Sheryl Ledgerwood, RN) Variability: Moderate 6-25 bpm (Sheryl Ledgerwood, RN) Accelerations: None (Sheryl Ledgerwood, RN) Decelerations: Early (Sheryl Ledgerwood, RN) Datetime: 09/08/2016 20:24 NBP Sys/Janiya/Mean (mmHg): 125 (QS system process) : 73 (QS system process) : 93 (QS system process) Pulse: 104 (QS system process) LaborFlag: Antepartum (QS system process) Datetime: 09/08/2016 20:11 Membrane Status: Ruptured (Sheryl Grahamgerariadne, RN) Membranes Rupture Method: Artificial (Sheryl Grahamgerariadne, RN) Amniotic Fluid Color: Light Meconium (Sheryl Ledgerwood, RN) Amniotic Fluid Amount: Small (Sheryl Ledgerwood, RN) Membrane Comments: Amniotic fluid bloodyand light meconium (Sheryl Ledgerwood, RN) Datetime: 09/08/2016 20:10 Dilatation (cm): 5.0 (Sheryl Ledgerwood, RN) Effacement (%): 80 (Sheryl Ledgerwood, RN) Station: -1 (Sheryl Ledgerwood, RN) Exam by: Corazon Hurst CNM (Sheryl Ledgerwood, RN) Datetime: 09/08/2016 20:00 Monitor Mode: External; Palpation (Sheryl Ledgerwood, RN) Frequency (min): 2.5-6.5 (Sheryl Ledgerwood, RN) Quality: Moderate (Sheryl Ledgerwood, RN) Duration (sec): 50-80 (Sheryl Ledgerwood, RN) Duration Criteria: Less than Two 120 Second Contractions (Sheryl Ledgerwood, RN) Pattern: Normal: <= 5 Contractions in 10 Minutes (Sheryl Ledgerwood, RN) Resting Tone (Palpate): Relaxed (Sheryl Ledgerwood, RN) Monitor Mode: External US (Sheryl Ledgerwood, RN) FHR Baseline Rate : 140 (Sheryl Ledgerwood, RN) FHR Baseline Changes: No Baseline Change (Sheryl Ledgerwood, RN) Variability: Moderate 6-25 bpm (Sheryl Ledgerwood, RN) Accelerations: None (Sheryl Ledgerwood, RN) Decelerations: Early (Sheryl Ledgerwood, RN) Datetime: 09/08/2016 19:53 NBP Sys/Janiya/Mean (mmHg): 124 (QS system process) : 73 (QS system process) : 94 (QS system process) Pulse: 103 (QS system process) LaborFlag: Antepartum (QS system process) Datetime: 09/08/2016 19:49 I/O Interventions: Popsicle (Sheryl Ledgerwood, RN) Datetime: 09/08/2016 19:38 NBP Sys/Janiya/Mean (mmHg): 125 (QS system process) : 75 (QS system process) : 94 (QS system process) Pulse: 102 (QS system process) LaborFlag: Antepartum (QS system process) Datetime: 09/08/2016 19:37 Dilatation (cm): 5.0 (Sheryl Grahamgerariadne, RN) Effacement (%): 80 (Sheryl Grahamgerwood, RN) Station: -1 (Sheryl Grahamgerwood, RN) Exam by: Mini Aragon RN (Sheryl Grahamgerwood, RN) Datetime: 09/08/2016 19:30 Monitor Mode: External; Palpation (Sheryl Aragon, RN) Frequency (min): 1.5-4.5 (Sheryl Ledgerwood, RN) Quality: Moderate (Sheryl Ledgerwood, RN) Duration (sec): 50-70 (Sheryl Ledgerwood, RN) Duration Criteria: Less than Two 120 Second Contractions (Sheryl Ledgerwood, RN) Pattern: Normal: <= 5 Contractions in 10 Minutes (Sheryl Aragon, RN) Resting Tone (Palpate): Relaxed (Sheryl Aragon, RN) Monitor Mode: External US (Sheryl Aragon, RN) FHR Baseline Rate : 135 (Sheryl Grahamgerariadne, RN) FHR Baseline Changes: No Baseline Change (Sheryl Ledgerwood, RN) Variability: Moderate 6-25 bpm (Sheryl Ledgerwood, RN) Accelerations: None (Sheryl Ledgerwood, RN) Decelerations: Early; Variable (Sheryl Ledgerwood, RN) Datetime: 09/08/2016 19:25 Pain Scale: 0 (Sheryl Aragon, BUD) Level of Consciousness: Fully Conscious (Sheryl Aragon, RN) DTR's/Clonus: DTRs 2+; No Clonus (Sheryl Aragon, RN) Headache: Denies (Sheryl Aragon, RN) Breath Sounds, Left: Clear and Equal (Sheryl Aragon, RN) Breath Sounds, Right: Clear and Equal (Sheryl Aragon, RN) Nausea/Vomiting: Denies (Sheryl Aragon, RN) RUQ Epigastric Pain: Denies (Sheryl Aragon, RN) Instructional Method: Demo; Verbal; Patient Instructed (Sheryl Aragon RN) Plan of Care: Plan of Care Discussed; Vaginal Delivery; Labor (Sheryl Aragon RN) LaborFlag: Antepartum (QS system process) Datetime: 09/08/2016 19:24 NBP Sys/Janiya/Mean (mmHg): 130 (QS system process) : 77 (QS system process) : 98 (QS system process) Pulse: 86 (QS system process) Respirations: 14 (Sheryl Gladysgerwood, RN) LaborFlag: Antepartum (QS system process) Datetime: 09/08/2016 19:21 Communication Comments: Report received from A Afsaneh RN at bedside. (Sheryl Gladysgerwood, RN) Datetime: 09/08/2016 19:09 NBP Sys/Janiya/Mean (mmHg): 133 (QS system process) : 82 (QS system process) : 99 (QS system process) Pulse: 100 (QS system process) LaborFlag: Antepartum (QS system process)
[2016-09-09 07:41] LABS: HEMATOCRIT 36.3 % (36.0-47.0); HGB HCT DIFFERENCE -0.3; MEAN CORPUSCULAR HEMOGLOBIN 29.1 pg (27.0-33.4); MEAN CORPUSCULAR HGB CONC 33.1 g/dL (32.0-36.0); MEAN CORPUSCULAR VOLUME 88 fl (80-97); RED BLOOD COUNT 4.13 10^6/uL (3.72-5.28); RED CELL DISTRIBUTION WIDTH 14.2 % (11.5-14.0); WHITE BLOOD COUNT 15.7 10^3/uL (4.0-10.5)
--- NOTE | 2016-09-09 08:43 | PDOC PROGRESS REPORT ---
Subjective-OB Subjective: Post Delivery Day: 21 year old. Denies any needs at this time Physical Exam (OB) Vital Signs: Temp Pulse Resp BP Pulse Ox 98.1 F 102 H 16 133/77 H 99 09/09/16 03:53 09/09/16 03:53 09/09/16 03:53 09/09/16 03:53 09/09/16 03:53 Intake & Output 09/08/16 09/09/16 09/10/16 06:59 06:59 06:59 Weight 82.6 kg - Lochia Lochia Amount: Small 10-25 ml Lochia Color: Rubra/Red - Abdomen Description: Tender, Soft Hernia Present: No Bowel Sounds: Normoactive Flatus Presence: Absent Stool: No Fundal Description: Firm, Midline Fundal Height: u/u - u/2 Objective-Diagnostic Laboratory: 09/09/16 07:18 09/08/16 09/08/16 09/08/16 10:50 13:20 13:20 WBC 14.7 H RBC 4.50 Hgb 13.2 Hct 39.4 MCV 88 MCH 29.3 MCHC 33.5 RDW 13.9 Plt Count 293 Seg Neutrophils % 78.8 H Lymphocytes % 14.8 Monocytes % 4.7 Eosinophils % 1.4 Basophils % 0.3 Absolute Neutrophils 11.6 H Absolute Lymphocytes 2.2 Absolute Monocytes 0.7 Absolute Eosinophils 0.2 Absolute Basophils 0.0 Urine Color YELLOW Urine Appearance SLIGHTLY-CLOUDY Urine pH 6.0 Ur Specific [place] 1.019 Urine Protein NEGATIVE Urine Glucose (UA) NEGATIVE Urine Ketones NEGATIVE Urine Blood NEGATIVE Urine Nitrite NEGATIVE Ur Leukocyte Esterase TRACE H Blood Type AB NEGATIVE Antibody Screen NEGATIVE 09/09/16 07:18 WBC 15.7 H RBC 4.13 Hgb 12.0 Hct 36.3 MCV 88 MCH 29.1 MCHC 33.1 RDW 14.2 H Plt Count 287 Seg Neutrophils % Lymphocytes % Monocytes % Eosinophils % Basophils % Absolute Neutrophils Absolute Lymphocytes Absolute Monocytes Absolute Eosinophils Absolute Basophils Urine Color Urine Appearance Urine pH Ur Specific [place] Urine Protein Urine Glucose (UA) Urine Ketones Urine Blood Urine Nitrite Ur Leukocyte Esterase Blood Type Antibody Screen
[2016-09-09] MEDS: PRENATAL VITAMIN W-O CA NO5/FE FUMARATE/FA CAPSULE PO SCH (09:58)
[2016-09-09] MEDS: FAMOTIDINE 20 MG TABLET PO SCH ×2 (09:59→21:26)
[2016-09-09] MEDS: DOCUSATE SODIUM 100 MG CAPSULE PO SCH ×2 (09:59→17:36)
[2016-09-09] MEDS: SENNOSIDES/DOCUSATE 8.6-50 MG 1 EACH TABLET PO SCH (09:59)
[2016-09-09] MEDS: FERROUS SULFATE 325 MG TABLET PO SCH ×2 (09:59→17:36)
--- NOTE | 2016-09-09 18:01 | L&D Current Admission ---
Current Admit Datetime Report Generated by CPN: 09/09/2016 18:00 ADMISSION INFORMATION Current Admit Date/Time: 09/08/2016 12:30 (09/08/2016 11:15:Alicia Sehlby RN) Reason for Admission: Induction of Labor (09/08/2016 11:15:Alicia Shelby RN) Chief Complaint: Contractions (09/08/2016 11:15:Alicia Shelby RN) EGA per Dates: 39.2 (09/08/2016 11:15:QS system process) Method of Arrival: Wheelchair (09/08/2016 11:15:Alicia Shelby RN) Admitted From: Home (09/08/2016 11:15:Alicia Shelby RN) Reason for Induction- Other: IUGR, oligo (09/08/2016 11:15:Alicia Shelby RN) Records Available: Yes (09/08/2016 11:15:Alicia Shelby RN) General Admission Information: Reviewed (09/08/2016 11:15:Alicia Shelby RN) BELONGINGS/ADVANCED DIRECTIVES Other Belongings: see signed belongings consent (09/08/2016 11:15:Alicia Shelby RN) Disposition of Belongings: Kept with Patient (09/08/2016 11:15:Alicia Shelby RN) Advance Direct for Healthcare: No, and Wants No Information (09/08/2016 11:15:Alicia Shelby RN) Durable Power of Care Professionals: No (09/08/2016 11:15:Alicia Shelby RN) Living Will: No (09/08/2016 11:15:Alicia Shelby RN) Organ Donor: No (09/08/2016 11:15:Alicia Shelby RN) Pt Rights Information Given: Yes (09/08/2016 11:15:Alicia Shelby RN) Pt Understands Pt Rights: Yes (09/08/2016 11:15:Alicia Shelby RN) LEARNING ASSESSMENT Knowledge Level: Understands L_D Process; Understands Care Activities; Had Pre-Hospital Education; Understands Diagnosis (09/08/2016 11:15:Alicia Shelby RN) Barriers to Learning: None (09/08/2016 11:15:Alicia Shelby RN) Learning Readiness: Motivated (09/08/2016 11:15:Alicia Shelby RN) Learns Best By: 1 to 1 Instruction (09/08/2016 11:15:Alicia Shelby RN) Learning Needs: Labor and Delivery Process; Pain Management; Symptoms to Report; Treatment Plan; Medication; Diagnosis; Nutrition; Equipment; Infant Care; Community Resources (09/08/2016 11:15:Alicia Shelby RN) DOMESTIC VIOLANCE SCREENING Dom Viol Threatened/Hurt: No (09/08/2016 11:15:Alicia Shelby RN) Hx of Abuse/Neglect past 2yrs: No (09/08/2016 11:15:Alicia Shelby RN) Feel Unsafe Going Home: No (09/08/2016 11:15:Alicia Shelby RN) Addt'l Observ Indicating Abuse: No (09/08/2016 11:15:Alicia Shelby RN) Reason Unable to Complete Screen: N/A, Screen Completed (09/08/2016 11:15:Alicia Shelby RN) Considered Personal Harm/Suicide: No (09/08/2016 11:15:Alicia Shelby RN) NUTRITIONAL/FUNCTIONAL SCREENING Problem with Appetite >5 Days: No (09/08/2016 11:15:Alicia Shelby RN) Chew/Swallow Difficulties: No (09/08/2016 11:15:Alicia Shelby RN) Inappropriate Wt Gain/Loss: No (09/08/2016 11:15:Alicia Shelby RN) Presence Skin Breakdown/Ulcer: No (09/08/2016 11:15:Alicia Shelby RN) Special Diet: No (09/08/2016 11:15:Alicia Shelby RN) Pt Requests Fishing Vessel Captain Visit: No (09/08/2016 11:15:Alicia Shelby RN) Hx of Any of the Following?: N/A (09/08/2016 11:15:Alicia Shelby RN) New Diagnosis of: N/A (09/08/2016 11:15:Alicia Shelby RN) Requires Assist w/Ambulation: No (09/08/2016 11:15:Alicia Shelby RN) Uses Assist Device to Ambulate: No (09/08/2016 11:15:Alicia Shelby RN) Pt Requires Help w/ADL's: No (09/08/2016 11:15:Alicia Shelby RN)
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
--- NOTE | 2016-09-09 18:15 | L&D Care Plan ---
LD CARE PLANS Datetime Report Generated by CPN: 09/09/2016 18:15 Datetime: 09/08/2016 13:29 Pain State: Not Applicable (Clara Jacome RN) Related To: Labor and Delivery Process (Clara Jacome RN) Goal(s): Patients Pain will be Assessed and Managed; Patient will Verbalize Adequate Relief of Pain or the Ability to [place] with Current Pain (Clara Jacome RN) Interventions: Assess Pain Severity on Scale of 0 (None) to 5 (Severe); Assess Type, Location and Intensity of Pain Each Time Client Reports Discomfort and Notify Provider if Unusal Pain Develops; Encourage Proper Breathing and Relaxation Techniques; Offer Alternatives Such as Repositioning, Calm Environment, Massages, Diversional Activities, Ice Pack, Splinting, and Ambulation; Administer Analgesics as Ordered; Assist with Epidural Placement as Appropriate; Evaluate Therapeutic Effectiveness of Medication and Treatments (Clara Jacome RN) Outcome: Patient will Report Absence or Relief of Pain Consistent with Established Pain Goal (Clara Jacome RN) Status: Ongoing (Clara Jacome RN) Outcome: Patient will have a Decrease in Signs and Symptoms of Discomfort (Clara Jacome RN) Status: Ongoing (Clara Jacome RN) Outcome: Pain will be Controlled During Procedures (Clara Jacome RN) Status: Ongoing (Clara Jacome RN) Anxiety State: Risk For (Clara Jacome RN) Related To: Labor and Delivery Process (Clara Jacome RN) Goal(s): Patient will have Decreased Anxiety and be able to Function at Acceptable Levels (Clara Jacome RN) Interventions: Assess Verbal and Nonverbal Behavioral Indicators of Anxiety; Assist Patient to Identify and Verbalize Symptoms of Anxiety; Identify and Demonstrate Techniques to Control Anxiety; Assist Patient with Coping Mechanisms to Manage Anxiety; Provide Theraputic Touch for the Patient; Explain to Patient, Using a Calm Reassuring Approach and Nonmedical Terms, All Activities, Procedures, and Concerns; Instruct Patient and Family about Post Discharge Care, Limitations, Symptoms to Report and Resources Available (Clara Jacome RN) Outcome: Patient will Identify, Verbalize and Demonstrate Techniques to Control Anxiety (Clara Jacome RN) Status: Ongoing (Clara Jacome RN) Outcome: Patient's Posture, Facial Expressions, Gestures and Activity Level will Reflect Decreased Anxiety (Clara Jacome RN) Status: Ongoing (Clara Jacome RN) Outcome: Patient will Verbalize a Sense of Control and/or Acceptance of the Situation (Clara Jacome RN) Status: Ongoing (Clara Jacome RN) Outcome: Patient will Identify and Utilize Support Person (Clara Jacome RN) Status: Ongoing (Clara Jacome RN) Knowledge Deficit State: Risk For (Clara Jacome RN) Related To: Labor and Delivery Process (Clara Jacome RN) Goal(s): Patient will Accurately Verbalize Understanding of Plan of Care and Treatment; Patient and Family will Accurately Verbalize Understanding of the Disease Process (Clara Jacome RN) Interventions: Assess Motivation and Willingness of Patient/Family to Learn; Assess Preferred Learning Mode: One to One Instruction, Reading, Videos, Group Discussion or Demonstration; Assess Barriers to Learning: Pain, Emotional State, Language Barrier, Cognitive Impairment, Visual or Hearing Deficits; Assess Patient and Family Knowledge of Disease Process, Medications and Treatment; Discuss Therapy and/or Treatment Options, Describe Rationale Behind Management, Therapy and Treatment Recommendations; Instruct Patient and Family on Signs and Symptoms to Report; Instruct Patient and Family on Medication Effects and Side Effects; Provide Appropriate and Timely Education Using Multiple Techniques; Provide Patient and Family with Support Group Information and Resources; Give Clear and Thorough Explanations and Demonstrations (Clara Jacome RN) Outcome: Patient and Family will Verbalize Understanding of Condition, Treatment and Signs and Symptoms to Report (Clara Jacome RN) Status: Ongoing (Claar Jacome RN) Outcome: Patient will Identify Perceived Learning Needs and Express Motivation to Learn (Clara Jacome RN) Status: Ongoing (Clara Jacome RN) Outcome: Patient will Verbalize Understanding of Desired Content, and/or Performs Desired Skill Prior to Discharge (Clara Jacome RN) Status: Ongoing (Clara Jacome RN) Infection State: Risk For (Clara Jacome RN) Related To: Prolonged Labor or Induction (Clara Jacome RN) Goal(s): The Patient will be Free of Infection, Vital Signs Stable and Lab Work within Normal Parameters (Clara Jacome RN) Interventions: Instruct and Reinforce Proper Handwashing, Hygiene, and Care Techniques to Patient and Family; Monitor Vital Signs; Monitor Patient for the Following Signs of Infection: Fever, Abdominal Tenderness, Unusual Discharge; Monitor Aminiotic Fluid, Urine and Lochia for Color and Odor; Observe Wounds, Incisions and Invasive Line Sites for Redness, Drainage and Edema; Assess IV Sites per Hospital Policy; Monitor Lab and Test Results and Notify Provider of Abnormal Findings; Assess Nutritional Status and Promote Good Nutrition (Clara Jacome RN) Outcome: Patient will Remain Free of Infection (Clara Jacome RN) Status: Ongoing (Clara Jacome RN) Outcome: Infection will be Recognized Early to Allow for Prompt Treatment (Clara Jacome RN) Status: Ongoing (Clara Jacome RN) Outcome: Patient will have Vital Signs Within Expected Range (Clara Jacome RN) Status: Ongoing (Clara Jacome RN) Fluid Volume State: Risk For (Clara Jacome RN) Related To: Prolonged Labor or Induction (Clara Jacome RN) Goal(s): Patient will Achieve and Maintain a Balanced Fluid Volume Status; Hemodynamically Stable (Clara Jacome RN) Interventions: Monitor Vital Signs; Auscultate Breath Sounds; Monitor Patient for Skin Turgor, Mucous Membranes, Dry Skin, Weakness, Headaches and Confusion; Provide Oral Fluids as Ordered; Initiate and Maintain Intravenous Fluids as Ordered; Monitor Intake and Output as Indicated Per Patient Status; Accurately Measure Blood Loss; Monitor Lab and Test Results as Obtained and Notify Provider of Abnormal Findings; Monitor Patient's Weight (Clara Jacome RN) Outcome: Patient will have Clear Lung Sounds (Clara Jacome RN) Status: Ongoing (Clara Jcaome RN) Outcome: Patient will have Vital Signs within Expected Range (Clara Jacome RN) Status: Ongoing (Clara Jacome RN) Outcome: Urine Output will be within Expected Range (Clara Jacome RN) Status: Ongoing (Clara Jacome RN) Outcome: Patient will have Minimal Generalized or Upper Extremity Edema (Clara Jacome RN) Status: Ongoing (Clara Jacome RN) Injury State: Risk For (Clara Jacome RN) Related To: Labor and Delivery Process (Clara Jacome RN) Goal(s): Patient will Remain Free from Injury (Clara Jacome RN) Interventions: Monitoring as per Hospital Protocol; Assess Neurological Status; Perform Risk Assessment of Patients with Induction and ; Perform Fall Risk Assessment and Prevention per Hospital Protocol; Perform DVT Risk Assessment and Prophylaxis per Hospital Protocol; Ensure that Oxygen, Suction, and Resuscitation Medications and Equipment are Readily Available; Confirm Patient ID Prior to Procedure(s) and Medication Administration per Hospital Policy (Clara Jacome RN) Outcome: Successful Fall Risk Prevention (Clara Jacome RN) Status: Ongoing (Clara Jacome RN) Outcome: Patient will Deliver Infant without Adverse [place] (Clara Jacome RN) Status: Ongoing (Clara Jacome RN) Outcome: Patient's Neurological Status will Remain Stable (Clara Jacome RN) Status: Ongoing (Clara Jacome RN) Impaired Skin Integrity State: Risk For (Clara Jacome RN) Related To: Vaginal Delivery (Clara Jacome RN) Goal(s): Patient will Maintain Optimal Skin Integrity, Free of Breakdown, Injury or Infection (Clara Jacome RN) Interventions: Encourage and Assist with Position Changes; Monitor Patient's Mobility Status; Provide Adequate Nutrition and Fluids; Teach Patient Appropriate Hygienic Care; Teach Patient/Family Skin Care Management (Clara Jacome RN) Outcome: Patient will not have Evidence of Injury Such as Skin Breakdown, Scrapes, Cuts, or Bruising (Clara Jacome RN) Status: Ongoing (Clara Jacome RN) Outcome: Patient will Report Any Altered Sensation or Pain at Site of Skin Impairment (Clara Jacome RN) Status: Ongoing (Clara Jacome RN) Outcome: Patients Incisions and Wounds will be without Signs or Symptoms of Infection (Clara Jacome RN) Status: Ongoing (Clara Jacome RN) Outcome: Patient will Demonstrate Understanding of Plan to Heal Skin and Prevent Reinjury and Verbalize Risk Factors (Clara Jacome RN) Status: Ongoing (Clara Jacome RN)
--- NOTE | 2016-09-10 06:01 | L&D Current Admission ---
Current Admit Datetime Report Generated by CPN: 09/10/2016 06:00 ADMISSION INFORMATION Current Admit Date/Time: 09/08/2016 12:30 (09/08/2016 11:15:Alicia Shelby RN) Reason for Admission: Induction of Labor (09/08/2016 11:15:Alicia Shelby RN) Chief Complaint: Contractions (09/08/2016 11:15:Alicia Shelby RN) EGA per Dates: 39.2 (09/08/2016 11:15:QS system process) Method of Arrival: Wheelchair (09/08/2016 11:15:Alicia Shelby RN) Admitted From: Home (09/08/2016 11:15:Alicia Shelby RN) Reason for Induction- Other: IUGR, oligo (09/08/2016 11:15:Alicia Shelby RN) Records Available: Yes (09/08/2016 11:15:Alicia Shelby RN) General Admission Information: Reviewed (09/08/2016 11:15:Alicia Shelby RN) BELONGINGS/ADVANCED DIRECTIVES Other Belongings: see signed belongings consent (09/08/2016 11:15:Alicia Shelby RN) Disposition of Belongings: Kept with Patient (09/08/2016 11:15:Alicia Shelby RN) Advance Direct for Healthcare: No, and Wants No Information (09/08/2016 11:15:Alicia Shelby RN) Durable Power of Software Developer Manager: No (09/08/2016 11:15:Alicia Shelby RN) Living Will: No (09/08/2016 11:15:Alicia Shelby RN) Organ Donor: No (09/08/2016 11:15:Alicia Shelby RN) Pt Rights Information Given: Yes (09/08/2016 11:15:Alicia Shelby RN) Pt Understands Pt Rights: Yes (09/08/2016 11:15:Alicia Shelby RN) LEARNING ASSESSMENT Knowledge Level: Understands L_D Process; Understands Care Activities; Had Pre-Hospital Education; Understands Diagnosis (09/08/2016 11:15:Alicia Shelby RN) Barriers to Learning: None (09/08/2016 11:15:Alicia Shelby RN) Learning Readiness: Motivated (09/08/2016 11:15:Alicia Shelby RN) Learns Best By: 1 to 1 Instruction (09/08/2016 11:15:Alicia Shelby RN) Learning Needs: Labor and Delivery Process; Pain Management; Symptoms to Report; Treatment Plan; Medication; Diagnosis; Nutrition; Equipment; Infant Care; Community Resources (09/08/2016 11:15:Alicia Shelby RN) DOMESTIC VIOLANCE SCREENING Dom Viol Threatened/Hurt: No (09/08/2016 11:15:Alicia Shelby RN) Hx of Abuse/Neglect past 2yrs: No (09/08/2016 11:15:Alicia Shelby RN) Feel Unsafe Going Home: No (09/08/2016 11:15:Alicia Shelby RN) Addt'l Observ Indicating Abuse: No (09/08/2016 11:15:Alicia Shelby RN) Reason Unable to Complete Screen: N/A, Screen Completed (09/08/2016 11:15:Alicia Shelby RN) Considered Personal Harm/Suicide: No (09/08/2016 11:15:Alicia Shelby RN) NUTRITIONAL/FUNCTIONAL SCREENING Problem with Appetite >5 Days: No (09/08/2016 11:15:Alicia Shelby RN) Chew/Swallow Difficulties: No (09/08/2016 11:15:Alicia Shelby RN) Inappropriate Wt Gain/Loss: No (09/08/2016 11:15:Alicia Shelby RN) Presence Skin Breakdown/Ulcer: No (09/08/2016 11:15:Alicia Shelby RN) Special Diet: No (09/08/2016 11:15:Alicia Shelby RN) Pt Requests Program Development Specialist Visit: No (09/08/2016 11:15:Alicia Shelby RN) Hx of Any of the Following?: N/A (09/08/2016 11:15:Alicia Shelby RN) New Diagnosis of: N/A (09/08/2016 11:15:Alicia Shelby RN) Requires Assist w/Ambulation: No (09/08/2016 11:15:Alicia Shelby RN) Uses Assist Device to Ambulate: No (09/08/2016 11:15:Alicia Shelby RN) Pt Requires Help w/ADL's: No (09/08/2016 11:15:Alicia Shelby RN)
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
--- NOTE | 2016-09-10 09:11 | PDOC DISCHARGE SUMMARY ---
Final Diagnosis Discharge Date: 09/10/16 - Final Diagnosis (1) Delivery normal Is this a current diagnosis for this admission?: Yes (2) History of hepatitis C Is this a current diagnosis for this admission?: Yes Discharge Data - Discharge Medication Home Medications: Vit/Iron Fumarate/FA [ Tablet] 1 tab PO DAILY 09/09/16 Acetaminophen with Codeine [Tylenol #3 Tablet] 2 each PO Q4HP PRN #20 tablet Docusate Sodium [Colace 100 mg Capsule] 100 mg PO BID #60 capsule 09/10/16 Gestational Age: 39.2 Reason(s) for Admission: Induction of Labor Procedures: NST Intrapartum Procedure(s): Spontaneous Vaginal Delivery - [place] Data Baby 1 Female at 1 minute: 8 at 5 minutes: 3 Weight: 2610 kg Home with Mother: Yes Complications: Yes - oligo, iugr - Diagnosis Test Laboratory: Temp Pulse Resp BP Pulse Ox 97.9 F 87 18 132/69 H 99 09/09/16 20:03 09/09/16 20:03 09/09/16 20:03 09/09/16 20:03 09/09/16 20:03 09/08/16 09/08/16 09/09/16 13:20 Unknown 07:18 RBC 4.50 4.13 Hgb 13.2 12.0 Hct 39.4 36.3 Urine Opiates Screen NEGATIVE - Discharge information/Instructions Discharge Activity: Activity As Tolerated, No Driving, No Lifting Over 10 Pounds , Pelvic Rest, No tub bath Discharge Diet: Regular Disposition: HOME, SELF-CARE Follow up with: [facility] in: 4, Weeks
[2016-09-10 09:41] VITALS: BP 120/67
[2016-09-10] MEDS: FERROUS SULFATE 325 MG TABLET PO SCH (10:31)
[2016-09-10] MEDS: DOCUSATE SODIUM 100 MG CAPSULE PO SCH (10:31)
[2016-09-10] MEDS: FAMOTIDINE 20 MG TABLET PO SCH (10:31)
[2016-09-10] MEDS: PRENATAL VITAMIN W-O CA NO5/FE FUMARATE/FA CAPSULE PO SCH (10:31)
[2016-09-10] MEDS: SENNOSIDES/DOCUSATE 8.6-50 MG 1 EACH TABLET PO SCH (10:31)
== END 2016-09-10 11:10 | disposition home or self-care (01) | DRG 774 ==
LOC: LC 10:33 → LR 12:28 → 2S 09-09 00:56
PROVIDERS: ADMIT Specialist; ATTEND Specialist
PROC: 10E0XZZ Delivery of Products of Conception, External Approach (ICD-10-PCS; principal; 2016-09-08)
PROC: 4A1HXCZ Monitoring of Products of Conception, Cardiac Rate, External Approach (ICD-10-PCS; 2016-09-08)
PROC: 3E0P7GC Introduction of Other Therapeutic Substance into Female Reproductive, Via Natural or Artificial Opening (ICD-10-PCS; 2016-09-08)
PROC: 3E0234Z Introduction of Serum, Toxoid and Vaccine into Muscle, Percutaneous Approach (ICD-10-PCS; 2016-09-10)
PROC: 3E0234Z Introduction of Serum, Toxoid and Vaccine into Muscle, Percutaneous Approach (ICD-10-PCS; 2016-09-10)
DX: O41.03X0 Oligohydramnios, third trimester, not applicable or unspecified (principal); O98.42 Viral hepatitis complicating childbirth; O99.334 Smoking (tobacco) complicating childbirth; O77.0 Labor and delivery complicated by meconium in amniotic fluid; O36.5930 Maternal care for other known or suspected poor fetal growth, third trimester, not applicable or unspecified; B19.20 Unspecified viral hepatitis C without hepatic coma; F17.210 Nicotine dependence, cigarettes, uncomplicated; Z3A.39 39 weeks gestation of pregnancy; Z37.0 Single live birth; Z62.810 Personal history of physical and sexual abuse in childhood; Z23 Encounter for immunization
CPT/HCPCS: 36415; 76815; 80307; 81005; 85025; 85027; 85461; 86592; 86850; 86900; 86901; 87070; 87077; 87081; 87491; 87591; 88307; 90686; 90715; J2540; J2590; J2790; J3490

== ENCOUNTER 2019-11-12 11:34 | Emergency (ER) | payer SELFPAY ==
[2019-11-12] MEDS ORDERED: OXYCODONE-ACETAMINOPHEN 5-325 MG TABLET PO ONE (11:44)
[2019-11-12] MEDS ORDERED: LIDOCAINE 1% INJ-PF (10 MG/ML) 30 ML SDV INJ ONE (11:45)
--- NOTE | 2019-11-12 11:45 | ER Document Report ---
HPI - HPI Time Seen by Provider: 11/12/19 11:40 Pain Level: 2 Notes: 24-year-old female patient presents emergency department laceration to her left forearm. Patient reports she was trying to change a lawnmower blade when the lawnmower fell and the blade hit her arm. She reports that she is not sure when the last tetanus was. This occurred just prior to arrival. - REPRODUCTIVE Reproductive: DENIES: : - MUSCULOSKELETAL Musculoskeletal: REPORTS: Extremity pain Past Medical History - General Information source: Patient - Social History Smoking Status: Current Every Day Smoker Chew tobacco use (# tins/day): No Frequency of alcohol use: None Drug Abuse: None Family History: Other Patient has homicidal ideation: No Pulmonary Medical History: Reports: Hx Asthma Neurological Medical History: Reports: Hx Migraine Skin Medical History: Reports Hx Cellulitis, Reports Hx MRSA Infectious Medical History: Reports: Hx MRSA - Immunizations Immunizations up to date: Yes Hx Diphtheria, Pertussis, Tetanus Vaccination: Yes Vertical Provider Document - CONSTITUTIONAL Notes: PHYSICAL EXAMINATION: GENERAL: Well-appearing, well-nourished and in no acute distress. HEAD: Atraumatic, normocephalic. EYES: Pupils equal round extraocular movements intact, conjunctiva are normal. ENT: Nares patent NECK: Normal range of motion LUNGS: No respiratory distress Musculoskeletal: Normal range of motion NEUROLOGICAL: Normal speech, normal gait. PSYCH: Normal mood, normal affect. SKIN: 3 cm laceration noted to medial of left forearm, this is gaping open and has adipose tissue exposed. Cap refill less than 3 seconds distally, strong radial pulse. No active bleeding noted at this time. - INFECTION CONTROL TRAVEL OUTSIDE OF THE [place] IN LAST 30 DAYS: No Course - Re-evaluation Re-evalutation: X-ray negative. Laceration repaired under sterile technique, patient tolerated well. Patient discharged home on antibiotics. - Vital Signs Vital signs: Temp Pulse Resp BP Pulse Ox 97.8 F 103 H 20 132/88 H 98 11/12/19 11:41 11/12/19 11:37 11/12/19 11:37 11/12/19 11:37 11/12/19 11:37 Procedures - Laceration/Wound Repair Left forearm Wound length (cm): 3 Wound's Depth, Shape: Superficial Laceration pre-procedure: Sterile PPE donned Anesthetic type: 1% Lidocaine Wound Debrided: Minimal Wound Repaired With: Sutures Suture Size/Type: 4:0 Number of Sutures: 5 Discharge - Discharge Clinical Impression: Laceration Condition: Stable Disposition: HOME, SELF-CARE Additional Instructions: Laceration Care Your laceration has been sutured to keep the skin edges aligned during healing. The time of suture removal depends on the nature and location of your cut. Please follow the care instructions the doctor has outlined for you and return for further care, according to the schedule you've been given. Keep the wound and dressing clean. Unless you were told otherwise, you may shower daily, blotting the wound dry with a clean, unused towel. At other times, If the dressing gets wet or blood soaked, remove it and blot the wound dry, then reapply a new dressing. Unless you were instructed otherwise, dressings should be changed at least daily. If any signs of infection occur (swelling, redness, increasing tenderness, red streaks, tender lumps in the armpit or groin above the laceration, or fever), see the doctor immediately. Please return to the emergency department or your primary care provider in 8-10 days for suture removal. Please return earlier if you develop any signs of infection such as increased redness, swelling, foul-smelling drainage or fever. Prescriptions: Cephalexin [Keflex] 500 mg PO BID #10 capsule
--- NOTE | 2019-11-12 12:30 | RADIOLOGY REPORT (SQ) ---
EXAM DESCRIPTION: FOREARM LEFT COMPLETED DATE/TIME: 11/12/2019 12:03 pm REASON FOR STUDY: injury, laceration COMPARISON: None. NUMBER OF VIEWS: Two views. TECHNIQUE: Two radiographic images acquired of the left forearm, including elbow and wrist in at [address]ra [address] one projection. LIMITATIONS: None. FINDINGS: MINERALIZATION: Normal. BONES: No acute fracture. No worrisome bone lesions. SOFT TISSUES: No obvious swelling or foreign body. Soft tissue laceration left forearm without retai debbie radiopaque foreign body. OTHER: No other significant finding. IMPRESSION: Soft tissue laceration left forearm without retained radiopaque foreign body or acute [place]n [place] injury TECHNICAL DOCUMENTATION: JOB ID: [id number] 2010 [employer]- All Rights Reserved Reading location - IP/workstation name: [email or web address]
[2019-11-12] MEDS ORDERED: DIPH/PERTUSS(ACELL)/TETANUS VAC/PF 0.5 ML SYR (>=10YO) IM ONE (13:05)
[2019-11-12 13:26] VITALS: BP 128/86
== END 2019-11-12 13:23 | disposition home or self-care (01) ==
LOC: ER 11:34
PROC: 0HQEXZZ Repair Left Lower Arm Skin, External Approach (ICD-10-PCS; principal; 2019-11-12)
DX: S51.812A Laceration without foreign body of left forearm, initial encounter (principal); W45.8XXA Other foreign body or object entering through skin, initial encounter; W22.8XXA Striking against or struck by other objects, initial encounter; Y93.H2 Activity, gardening and landscaping; F17.200 Nicotine dependence, unspecified, uncomplicated; J45.909 Unspecified asthma, uncomplicated; Z86.14 Personal history of Methicillin resistant Staphylococcus aureus infection
CPT/HCPCS: 90471; 90715; 99283